=== PATIENT | male | born 1955 | race Caucasian/White ===

== ENCOUNTER 2018-03-01 08:50 | Emergency (ER) | payer BC ==
--- NOTE | 2018-03-01 09:55 | EDPHY ---
H & P Stated Complaint: fall last night into bed frame, c/o right rib pain Time Seen by Provider: 03/01/18 08:59 HPI/ROS: CHIEF COMPLAINT: Right flank pain HISTORY OF PRESENT ILLNESS: 62-year-old male presents with right flank pain. Last night he was in bed and stood up suddenly to go to the bathroom. He felt dizzy and then had a syncopal episode. He struck a bed post when he fell to the floor. Onset of severe right flank pain immediately after the fall. The pain increases with deep inspiration and movement. No associated SOB, abd pain or vomiting. No known head injury; no headache or neck pain. REVIEW OF SYSTEMS: complete 10 point ROS negative except at noted in the HPI - Medical/Surgical History Hx Asthma: No Hx Chronic Respiratory Disease: No Hx Diabetes: No Hx Cardiac Disease: Yes Hx Renal Disease: No Hx Cirrhosis: No Hx Alcoholism: No Hx HIV/AIDS: No Hx Splenectomy or Spleen Trauma: No Other PMH: prostate CA, hernia sx, HTN, hyperlipidemia - Social History Smoking Status: Never smoked Alcohol Use: Sober Drug Use: None Additional Social History: Visiting from out of town - Physical Exam Exam: General Appearance: Alert, pleasant Eyes: Pupils equal and round, no conjunctival pallor or injection ENT, Mouth: Mucous membranes moist Neck: Normal inspection Respiratory: Right chest wall tenderness and ecchymosis, lungs are clear to auscultation Cardiovascular: Regular rate and rhythm Gastrointestinal: Abdomen is soft, right upper quadrant tenderness, no peritoneal signs Neurological: A&O, nonfocal, normal gait Skin: Warm and dry Extremities: Normal inspection Psychiatric: Mood and affect normal Constitutional: Initial Vital Signs Temperature (C) 36.7 C 03/01/18 08:54 Heart Rate 58 L 03/01/18 08:54 Respiratory Rate 18 03/01/18 08:54 Blood Pressure 122/78 H 03/01/18 08:54 O2 Sat (%) 95 03/01/18 08:54 O2 Delivery Mode Room Air Allergies/Adverse Reactions: No Known Allergies Allergy (Unverified 03/01/18 08:53) Home Medications: Medication Instructions Recorded Anti Bladder Spasms 03/01/18 Cialis 03/01/18 Coreg 03/01/18 Lipitor 03/01/18 traMADol [Ultram 50 mg (*)] 50 mg PO Q4 PRN #20 tab 03/01/18 Medical Decision Making - Diagnostics EKG Interpretation: EKG interpreted by me reveals normal first-degree AV block, rate 40, no ST or T segment changes. Interpretation: Abnormal EKG Imaging Results: Imaging Impressions Chest X-Ray 03/01/18 09:12 Impression: 4 right rib fractures. 2. Right Ribs, 3 views History: Pain post fall Findings: There are fractures of the anterior right 8th 9th and 10th 11th fractures, the 10th and 11th fractures being displaced. Impression: 4 anterior right rib fractures. Ribs X-Ray 03/01/18 09:12 Impression: 4 right rib fractures. 2. Right Ribs, 3 views History: Pain post fall Findings: There are fractures of the anterior right 8th 9th and 10th 11th fractures, the 10th and 11th fractures being displaced. Impression: 4 anterior right rib fractures. Abdomen CT 03/01/18 09:52 Impression: 1. Small peripheral right hepatic lobe laceration (grade 1) without active bleeding or subcapsular hematoma, likely secondary to the patient's right lateral ninth rib fracture. 2. Abnormal left prostate gland. Correlation with any history of prostate cancer , recent biopsy or regional symptoms is recommended. Results called and discussed with MIRANDA ARCHER, at 03/01/2018 11:07 General information for patients regarding this examination can be found at [email or web address]. If you have questions or comments about this report, please contact me at (hospital) or [phone] (cell). Imaging: Discussed imaging studies w/ square dance caller Radiologist, I viewed and interpreted images myself ED Course/Re-evaluation: This pt presents with rt flank pain after a syncopal episode. stat EKG reveals HR 40, no ischemic changes. Chest x-ray reveals multiple right-sided rib fracture, no pneumothorax. The patient has moderate right upper quadrant tenderness, concerning for liver injury. CT scan of the abdomen pelvis ordered and reveals a grade 1 liver laceration. The patient was informed. Dr. Andersen was consulted and will see the patient in the emergency department. Patient was seen by Dr. Porter, appropriate for discharge home. Tramadol given by Dr. Andersen, requests rx for home. Discussed with the patient, he would greatly prefer to go home. I advised him to be admitted because of the syncopal episode and underlying bradycardia. Concern about syncope related to bradycardia and hypotension, possibly secondary to Coreg. However, he refuses admission and will follow up with Cardiology as an outpatient. Warning signs discussed, including increasing abdominal pain, shortness of breath and dizziness. Differential Diagnosis: Differential diagnosis for trauma includes though it is not limited to fracture , intracranial hemorrhage, pneumothorax, hemothorax, intra-abdominal hemorrhage. - Data Points Laboratory Results: Laboratory Results 03/01/18 10:00 03/01/18 10:00 03/01/18 03/01/18 03/01/18 10:18 10:06 10:00 WBC RBC Hgb POC Hgb 14.3 gm/dL gm/dL (13.7-17.5) Hct POC Hct 42 % % (40-51) MCV MCH MCHC RDW Plt Count MPV Neut % (Auto) Lymph % (Auto) [place] % (Auto) Eos % (Auto) Baso % (Auto) Nucleat RBC Rel Count Absolute Neuts (auto) Absolute Lymphs (auto) Absolute Monos (auto) Absolute Eos (auto) Absolute Basos (auto) Absolute Nucleated RBC Immature Gran % Immature Gran # POC Sodium 140 mEq/L mEq/L (135-145) Sodium 138 mEq/L mEq/L (135-145) POC Potassium 3.8 mEq/L mEq/L (3.3-5.0) Potassium 4.2 mEq/L mEq/L (3.3-5.0) POC Chloride 105 mEq/L mEq/L (97-110) Chloride 108 mEq/L mEq/L (97-110) Carbon Dioxide 21 mEq/l L mEq/l (22-31) Anion Gap 9 mEq/L mEq/L (8-16) POC BUN 14 mg/dL mg/dL (7-23) BUN 15 mg/dL mg/dL (7-23) Creatinine 0.7 mg/dL mg/dL (0.7-1.3) POC Creatinine 0.8 mg/dL mg/dL (0.7-1.3) Estimated GFR > 60 Glucose 111 mg/dL H mg/dL (70-100) POC Glucose 110 mg/dL H mg/dL (70-100) Calcium 9.3 mg/dL mg/dL (8.5-10.4) Total Bilirubin 1.0 mg/dL mg/dL (0.1-1.4) Conjugated Bilirubin 0.0 mg/dL mg/dL (0.0-0.5) Unconjugated Bilirubin 1.0 mg/dL mg/dL (0.0-1.1) AST 33 IU/L IU/L (17-59) ALT 38 IU/L IU/L (21-72) Alkaline Phosphatase 57 IU/L IU/L (38-126) POC Troponin I 0.00 ng/mL ng/mL (0.00-0.08) Total Protein 6.5 g/dL g/dL (6.3-8.2) Albumin 4.2 g/dL g/dL (3.5-5.0) Lipase 41 IU/L IU/L (23-300) 03/01/18 10:00 WBC 7.54 10^3/uL 10^3/uL (3.80-9.50) RBC 4.52 10^6/uL 10^6/uL (4.40-6.38) Hgb 13.6 g/dL L g/dL (13.7-17.5) POC Hgb Hct 39.9 % L % (40.0-51.0) POC Hct MCV 88.3 fL fL (81.5-99.8) MCH 30.1 pg pg (27.9-34.1) MCHC 34.1 g/dL g/dL (32.4-36.7) RDW 13.1 % % (11.5-15.2) Plt Count 189 10^3/uL 10^3/uL (150-400) MPV 10.3 fL fL (8.7-11.7) Neut % (Auto) 75.0 % H % (39.3-74.2) Lymph % (Auto) 15.0 % % (15.0-45.0) [place] % (Auto) 9.0 % % (4.5-13.0) Eos % (Auto) 0.5 % L % (0.6-7.6) Baso % (Auto) 0.1 % L % (0.3-1.7) Nucleat RBC Rel Count 0.0 % % (0.0-0.2) Absolute Neuts (auto) 5.65 10^3/uL 10^3/uL (1.70-6.50) Absolute Lymphs (auto) 1.13 10^3/uL 10^3/uL (1.00-3.00) Absolute Monos (auto) 0.68 10^3/uL 10^3/uL (0.30-0.80) Absolute Eos (auto) 0.04 10^3/uL 10^3/uL (0.03-0.40) Absolute Basos (auto) 0.01 10^3/uL L 10^3/uL (0.02-0.10) Absolute Nucleated RBC 0.00 10^3/uL 10^3/uL (0-0.01) Immature Gran % 0.4 % % (0.0-1.1) Immature Gran # 0.03 10^3/uL 10^3/uL (0.00-0.10) POC Sodium Sodium POC Potassium Potassium POC Chloride Chloride Carbon Dioxide Anion Gap POC BUN BUN Creatinine POC Creatinine Estimated GFR Glucose POC Glucose Calcium Total Bilirubin Conjugated Bilirubin Unconjugated Bilirubin AST ALT Alkaline Phosphatase POC Troponin I Total Protein Albumin Lipase Medications Given: Discontinued Medications Tramadol HCl (Ultram) 50 mg PO EDNOW ONE Stop: 03/01/18 11:43 Last Admin: 03/01/18 12:03 Dose: 50 mg Point of Care Test Results: Chemistry 03/01/18 03/01/18 10:18 10:06 POC Sodium 140 mEq/L mEq/L (135-145) POC Potassium 3.8 mEq/L mEq/L (3.3-5.0) POC Chloride 105 mEq/L mEq/L (97-110) POC BUN 14 mg/dL mg/dL (7-23) POC Creatinine 0.8 mg/dL mg/dL (0.7-1.3) POC Glucose 110 mg/dL H mg/dL (70-100) POC Troponin I 0.00 ng/mL ng/mL (0.00-0.08) ISTAT H&H 03/01/18 10:18 POC Hgb 14.3 gm/dL gm/dL (13.7-17.5) POC Hct 42 % % (40-51) Departure - Departure Disposition: Home, Routine, Self-Care Clinical Impression: Ribs, multiple fractures Qualifiers: Encounter type: initial encounter Fracture type: closed Laterality: right Qualified Code(s): S22.41XA - Multiple fractures of ribs, right side, initial encounter for closed fracture Syncope Qualifiers: Syncope type: unspecified Qualified Code(s): R55 - Syncope and collapse Condition: Good Instructions: Tramadol (By mouth), Rib Fracture (ED), Syncope (ED), Liver or Spleen Laceration (DC) Additional Instructions: Tylenol 1 tablet every 4 hr as needed for pain. Use the incentive spirometer every 3-4 hours while awake. Please call your tribal judge to discuss the Coreg. This medication is likely causing your low heart rate. Return for worsening pain, shortness of breath, dizziness or any concerns. Referrals: AWA HOU MD [Other] - As per Instructions Joe Grullon MD [Medical Doctor] - As per Instructions (Call to make an appointment.) Prescriptions: traMADol [Ultram 50 mg (*)] 50 mg PO Q4 PRN #20 tab PRN Reason: pain
[2018-03-01] MEDS ORDERED: IOPAMIDOL (ISOVUE-300) 100 ML BTL ONE (09:58)
--- NOTE | 2018-03-01 10:11 | CPEKG ---
Heart Rate: 39 RR Interval: 1538 P-R Interval: 268 QRSD Interval: 92 QT Interval: 464 QTC Interval: 374 P [place]: 19 QRS [place]: -13 T Wave [place]: 9 EKG Severity - ABNORMAL ECG - EKG Impression: SINUS BRADYCARDIA EKG Impression: FIRST DEGREE AV BLOCK Electronically Signed By: Carine Jose 01-Mar-2018 15:12:48
[2018-03-01 10:12] LABS: PLATELET COUNT 189 10^3/uL (150-400)
[2018-03-01] MEDS ORDERED: traMADol 50 MG TAB PO ONE (11:42)
[2018-03-01] MEDS ORDERED: traMADol 50 MG TAB ONE (12:02)
[2018-03-01 12:13] VITALS: BP 143/83
--- NOTE | 2018-03-01 12:59 | GCON ---
[f rep st] CONSULTATION This is a 62-year-old gentleman who presents to the hospital several hours after having stood up and felt faint and then hit his right chest against the bedpost. He is visiting his daughter from [facility] and was just unaware of where he was. The patient denies any other previous syncope. However, he does have a little bit of bradycardia with a heart rate in the low 40s. The patient complains of lower chest pain on the right. Otherwise, does not recall striking his head, losing consciousness or any other issues. He did not want to come in, but his daughter requested that he did. PAST MEDICAL HISTORY: Significant for hypertension, hyperlipidemia, and prostate cancer. He has rec ently undergone high-frequency oscillation treatment of the prostate cancer as well as a TURP. ALLERGIES: He has no known drug allergies. MEDICATIONS: Include Lipitor, Cialis, Coreg and a medicine for bladder spasms that he cannot remembe r. FAMILY HISTORY: Noncontributory. REVIEW OF SYSTEMS: Significant for his fall. Otherwise with his prostate cancer treatment he has fr equent urinations. All others are reviewed and are negative. PHYSICAL EXAMINATION: VITAL SIGNS: The patient has a heart rate of 45, blood pressure of 130/70. H is saturations are 96% on room air. GENERAL: He is in no distress. HEENT: Sclerae anicteric. Nilo pharynx is moist. NECK: He has no JVD. Trachea is midline. LUNGS: Clear bilaterally. HEART: Re gular, heart tones S1 and S2. ABDOMEN: Soft, tender in the lower right chest/upper abdomen. No hep atosplenomegaly. No scars. No hernias are noted. EXTREMITIES: Have good central and peripheral pul ses. He is sensate. IMAGING: CT scan, chest x-ray are reviewed and it shows a grade 1 liver laceration, minimally displa victor m rib fractures on the right. All other intra-abdominal organs appear normal. There is no blood i n the abdomen. LABS: Hemoglobin 13.6 with hematocrit of 39. He has a white count of 7.5, platelet count of 189. C hemistries are all normal. IMPRESSION: Rib fractures from localized trauma with a grade 1 liver laceration. No signs of acute bleeding. RECOMMENDATIONS: Pain control, pulmonary toilet. Refrain from contact sports for approximately 4-6 weeks. The patient will follow up with his primary care doctor. He has bradycardia and his syncope is a possibility due to his heart rate. I would continue to monitor this and follow up with his card iologist when he gets back to [place]. All questions were answered. The patient knows to return for any worsening conditions. Tramadol for pain as the patient wished to avoid narcotics. /[id number]/MODL
== END 2018-03-01 12:32 | disposition home or self-care (01) ==
DX: S22.41XA Multiple fractures of ribs, right side, initial encounter for closed fracture (principal); R55 Syncope and collapse; I10 Essential (primary) hypertension; Z85.46 Personal history of malignant neoplasm of prostate; W22.03XA Walked into furniture, initial encounter; Y92.89 Other specified places as the place of occurrence of the external cause; Y99.8 Other external cause status; Y93.89 Activity, other specified
CPT/HCPCS: 82435-PO; 82565-PO; 82947-PO; 84132-PO; 84295-PO; 84484-PO; 84520-PO; 85014-PO; Q9967

== ENCOUNTER 2018-03-02 15:52 | Emergency (ER) | payer BC ==
--- NOTE | 2018-03-02 16:45 | EDPHY ---
H & P Time Seen by Provider: 03/02/18 16:27 HPI/ROS: CHIEF COMPLAINT: Abdominal bloating and pain HISTORY OF PRESENT ILLNESS: A 62-year-old male who presents emergency department with worsening abdominal pain and bloating. Patient was seen in the emergency department yesterday. Patient states that on Saturday he had a syncopal episode. Patient states he took prolonged shower and then was lying down. He stood and took a few steps with a subsequent syncopal episode. He fell and struck the edge of the bed post striking his right lower ribs. He had significant right lateral rib pain. He came to the emergency department yesterday and was diagnosed with grade 1 liver laceration and minimally displaced rib fractures on the right. He was evaluated by both Dr. Jose and Dr. Andersen. Patient states he felt slightly better this morning went for a long walk. However he now has increased abdominal pain. He also describes increased abdominal bloating. He has had no bowel movement since the incident. He is not passing any gas. He was concerned that he may have an obstruction. He describes a general sense of fullness. He denies any lightheadedness or dizziness. No chest pain or shortness of breath. REVIEW OF SYSTEMS: My complete review of systems is negative except as mentioned in the HPI. Past Medical/Surgical History: Includes hypertension, hyperlipidemia, prostate cancer(recent TURP and high- frequency ultrasound) Past surgical history: TURP, hernia repair Social history: Patient is from [place]. Patient does not smoke. Smoking Status: Never smoked Physical Exam: Vitals noted. 148/98, heart rate 58, 16, 96% on room air GENERAL: Well-appearing, in no acute distress, alert. HEENT: Eyes normal to inspection, normal pharynx, no signs of dehydration. NECK: No thyromegaly, no lymphadenopathy, supple. RESPIRATORY: Clear to auscultation bilaterally, no rales, rhonchi or wheezing. Right lateral chest wall tenderness palpation. No crepitus. CVS: Regular rate and rhythm, no rubs, murmurs, or gallops. ABDOMEN: Soft, mild right upper quadrant tenderness to palpation with no rebound or guarding. Mild right lower quadrant tenderness to palpation with no rebound or guarding. Mild distension. no organomegaly. BACK: Normal to inspection, no CVA tenderness. SKIN: Normal color, no rash, warm, dry. No pallor. EXTREMITIES: No pedal edema, no calf tenderness, no Homans sign or cords, no joint swelling. NEURO/PSYCH: Alert and oriented, normal mood and affect, normal motor sensory exam. Constitutional: Initial Vital Signs Heart Rate 58 L 03/02/18 15:52 Respiratory Rate 16 03/02/18 15:52 Blood Pressure 148/98 H 03/02/18 15:52 O2 Sat (%) 96 03/02/18 15:52 O2 Delivery Mode Room Air Allergies/Adverse Reactions: No Known Allergies Allergy (Unverified 03/02/18 16:00) Home Medications: Medication Instructions Recorded Anti Bladder Spasms 03/01/18 Cialis 03/01/18 Coreg 03/01/18 Lipitor 03/01/18 traMADol [Ultram 50 mg (*)] 50 mg PO Q4 PRN #20 tab 03/01/18 Docusate Sodium [Colace 100 MG (*)] 100 mg PO BID PRN 10 Days cap 03/02/18 Medical Decision Making - Diagnostics Imaging Results: Imaging Impressions Abdomen CT 03/02/18 16:48 Impression: 1. Progressive proximal constipation with gas since yesterday. No evidence for colon obstruction. There could potentially be a proximal colonic ileus. Please see above. 2. Stable hepatic injury. 3. New small right basilar pleural effusion and increasing right basilar atelectasis secondary to the patient's rib fractures. Results called and discussed with CHRISTOPHER GRESHAM, at 03/02/2018 19:01 General information for patients regarding this examination can be found at [email or web address]. If you have questions or comments about this report, please contact me at (hospital) or [phone] (cell). ED Course/Re-evaluation: In the emergency department discussed possible etiologies with the patient. I answered all his questions. I reviewed the patient's history from yesterday. An IV was placed. Laboratory studies were obtained. The patient repeat abdomen pelvis CT. It was noted the patient had a low heart rate yesterday. Today his heart rate is 58. CBC and chemistry are unremarkable. LFTs normal. CT of the abdomen pelvis: Please refer the dictated report. This progressed constipation. No evidence of obstruction. Stable hepatic injury. Small right pleural effusion. 0: I rechecked the patient. He was sitting comfortably in the bed. On recheck he was doing well. I discussed the results and answered his questions. The patient was given warnings prior to leaving. He will return with worsening symptoms. He will use both Metamucil and Colace. Differential Diagnosis: My differential includes but is not limited to syncope, dysrhythmia, bradycardia , acute IN, electrolyte abnormality, sugar abnormality, CVA, vasovagal episode, rib fracture, pneumothorax, hemothorax, liver laceration, small-bowel obstruction, perforation, hemorrhage - Data Points Laboratory Results: Laboratory Results 03/02/18 17:03 03/02/18 17:03 03/02/18 03/02/18 03/02/18 17:03 17:03 17:03 WBC 6.25 10^3/uL 10^3/uL (3.80-9.50) RBC 4.64 10^6/uL 10^6/uL (4.40-6.38) Hgb 13.9 g/dL g/dL (13.7-17.5) Hct 41.6 % % (40.0-51.0) MCV 89.7 fL fL (81.5-99.8) MCH 30.0 pg pg (27.9-34.1) MCHC 33.4 g/dL g/dL (32.4-36.7) RDW 13.3 % % (11.5-15.2) Plt Count 210 10^3/uL 10^3/uL (150-400) MPV 10.1 fL fL (8.7-11.7) Neut % (Auto) 63.2 % % (39.3-74.2) Lymph % (Auto) 24.6 % % (15.0-45.0) [place] % (Auto) 10.6 % % (4.5-13.0) Eos % (Auto) 1.1 % % (0.6-7.6) Baso % (Auto) 0.2 % L % (0.3-1.7) Nucleat RBC Rel Count 0.0 % % (0.0-0.2) Absolute Neuts (auto) 3.95 10^3/uL 10^3/uL (1.70-6.50) Absolute Lymphs (auto) 1.54 10^3/uL 10^3/uL (1.00-3.00) Absolute Monos (auto) 0.66 10^3/uL 10^3/uL (0.30-0.80) Absolute Eos (auto) 0.07 10^3/uL 10^3/uL (0.03-0.40) Absolute Basos (auto) 0.01 10^3/uL L 10^3/uL (0.02-0.10) Absolute Nucleated RBC 0.00 10^3/uL 10^3/uL (0-0.01) Immature Gran % 0.3 % % (0.0-1.1) Immature Gran # 0.02 10^3/uL 10^3/uL (0.00-0.10) PT 13.5 SEC SEC (12.0-15.0) INR 1.01 (0.83-1.16) APTT 30.0 SEC SEC (23.0-38.0) Sodium 141 mEq/L mEq/L (135-145) Potassium 4.2 mEq/L mEq/L (3.3-5.0) Chloride 105 mEq/L mEq/L (97-110) Carbon Dioxide 27 mEq/l mEq/l (22-31) Anion Gap 9 mEq/L mEq/L (8-16) BUN 18 mg/dL mg/dL (7-23) Creatinine 0.9 mg/dL mg/dL (0.7-1.3) Estimated GFR > 60 Glucose 86 mg/dL mg/dL (70-100) Calcium 9.4 mg/dL mg/dL (8.5-10.4) Total Bilirubin 0.8 mg/dL mg/dL (0.1-1.4) Conjugated Bilirubin 0.0 mg/dL mg/dL (0.0-0.5) Unconjugated Bilirubin 0.8 mg/dL mg/dL (0.0-1.1) AST 22 IU/L IU/L (17-59) ALT 33 IU/L IU/L (21-72) Alkaline Phosphatase 57 IU/L IU/L (38-126) Total Protein 7.0 g/dL g/dL (6.3-8.2) Albumin 4.4 g/dL g/dL (3.5-5.0) Lipase 62 IU/L IU/L (23-300) Medications Given: Discontinued Medications Ondansetron HCl (Zofran) 4 mg IVP EDNOW ONE Stop: 03/02/18 16:49 Last Admin: 03/02/18 17:08 Dose: 4 mg Departure - Departure Disposition: Home, Routine, Self-Care Clinical Impression: Abdominal pain Qualifiers: Abdominal location: generalized Qualified Code(s): R10.84 - Generalized abdominal pain Constipation Qualifiers: Constipation type: other constipation type Qualified Code(s): K59.09 - Other constipation Condition: Good Instructions: Constipation (ED) Additional Instructions: Return with increasing bloating, increased pain, fever, vomiting or any other concerns. Use Metamucil at least 3-5 times daily. Uses Colace as directed. Referrals: AWA HOU [Other] - As per Instructions Prescriptions: Docusate Sodium [Colace 100 MG (*)] 100 mg PO BID PRN 10 Days cap PRN Reason: As needed as a stool softner
[2018-03-02] MEDS ORDERED: ONDANSETRON 4 MG/2 ML VIAL IVP ONE (16:48)
[2018-03-02 17:25] LABS: PLATELET COUNT 210 10^3/uL (150-400)
[2018-03-02] MEDS ORDERED: IOPAMIDOL (ISOVUE-300) 100 ML BTL ONE (17:38)
[2018-03-02 17:48] LABS: INR 1.01 (0.83-1.16); PROTIME(PATIENT) 13.5 SEC (12.0-15.0)
[2018-03-02 19:30] VITALS: BP 145/98
== END 2018-03-02 19:29 | disposition home or self-care (01) ==
DX: K59.09 Other constipation (principal); I10 Essential (primary) hypertension; Z85.46 Personal history of malignant neoplasm of prostate
CPT/HCPCS: 96374; J2270; J2405; Q9967